=== PATIENT | female | born 1995 | race Caucasian/White ===

== ENCOUNTER 2018-11-01 15:59 | Outpatient (CLI) | payer OTHER ==
--- NOTE | 2018-11-02 10:47 | XRAY Report ---
Reason: ANKLE PAIN,RIGHT Procedure Date: 11/01/2018 Accession Number: [id number] / [id number] Procedure: WCP - Ankle 2 View RT CPT Code: FULL RESULT: EXAM: RIGHT ANKLE RADIOGRAPHY EXAM DATE: 11/01/2018 04:08 PM. CLINICAL HISTORY: Ankle pain, right. COMPARISON: None. TECHNIQUE: 2 views. FINDINGS: Bones: Minimal inferior calcaneal spurring. No significant spurring of the Achilles insertion. No fractures or bone lesions. Joints: Normal. No effusion. No subluxations. The ankle mortise is normally aligned. Soft Tissues: Normal. No soft tissue swelling. IMPRESSION: Minimal inferior calcaneal spurring. [facility]
== END 2018-11-01 16:00 | disposition home or self-care (01) ==
LOC: DI.WCP 15:59
PROVIDERS: ATTEND Physician Assistant
DX: M77.31 Calcaneal spur, right foot (principal)

== ENCOUNTER 2018-12-12 13:54 | Outpatient (CLI) | payer OTHER ==
--- NOTE | 2018-12-13 12:19 | Ultrasound Report ---
Reason: ACHILLES TENDONITIS, RIGHT Procedure Date: 12/12/2018 Accession Number: [id number] / [id number] Procedure: US - Ext Limited Non Vascular CPT Code: FULL RESULT: EXAM: RIGHT LOWER EXTREMITY ULTRASOUND - LIMITED EXAM DATE: 12/12/2018 03:28 PM. CLINICAL HISTORY: Achilles tendonitis, right. COMPARISON: None. TECHNIQUE: Real-time scanning was performed with static images obtained. FINDINGS: Musculoskeletal real-time examination by the radiologist was performed of the Achilles tendon insertion region including the nearby bursa. Additional real-time imaging of the area pointed out as painful by the patient, medial malleolus was performed. The Achilles tendon, its insertion and the retrocalcaneal bursa all appear normal. Limited evaluation of the medial malleolus reveals no abnormality. IMPRESSION: Normal study. [facility]
== END 2018-12-12 13:55 | disposition home or self-care (01) ==
LOC: DI 13:54
PROVIDERS: ATTEND Physician Assistant
DX: M76.61 Achilles tendinitis, right leg (principal)
CPT/HCPCS: 76882